=== PATIENT | female | born 1965 | race Caucasian/White ===

== ENCOUNTER → 2016-09-26 | Outpatient (CLI) | payer MEDICARE, OTHER ==
[~2016-09-26] MED LIST: ALCA3DRO EACHEYE; ASCO-96 PO; ASCO500T8 PO; ASPI1TAB30 PO; AZEL6DRO2 EACHEYE; BACL20TA PO; BETA2500 PO; BUPR1FIL3 SL; CARB200T4 PO; CELE200C PO; CHOL200024 PO; CYAN25009 PO; CYCL-259 PO; DESO15CR TD; DEXL60CA PO; DICL100G8 TD; DIPH25CA61 PO; ERGO2000 PO; ERGO500017 PO; ERGO500047 PO; GABA600T2 PO; GEMF600T3 PO; HYDR50TA13 PO; KETO10TA PO; KETO5DRO4 OP; LEVO75TA5 PO; LEVO88TA4 PO; LIDO700A5 TD; LIOT5TAB3 PO; MAGN1TAB PO; MECL25TA4 PO; METO10TA2 PO; MORP15TA3 PO; MORP30TA PO; MULT-717 PO; OLOP2.5D EACHEYE; OMEG100023 PO; OMEG1CAP24 PO; OMEG1CAP6 PO; ONDA8TAB9 PO; OXYC1TAB7 PO; OXYC5CAP4 PO; PRED1DRO EACHEYE; RANI150T4 PO; THERATEARS EACHEYE; TRAM50TA2 PO; UBID10CA5 PO; UREA85CR TD; VITA150T PO; X VIATE TD; ZINC50CA PO; [UNRECOGNIZED DRUG - CODE] PO; [UNRECOGNIZED DRUG - CODE] PO; [UNRECOGNIZED DRUG - OTHER]; [UNRECOGNIZED DRUG - OTHER] EACHEYE; [UNRECOGNIZED DRUG - OTHER] PO; [UNRECOGNIZED DRUG - OTHER] PO
[2016-09-26 12:03] LABS: BLOOD UREA NITROGEN 11 mg/dL (7-18); HEMOGLOBIN 12.2 g/dL (11.7-16.4)
== END | disposition home or self-care (01) ==
LOC: STAR 10:34
PROVIDERS: ATTEND Neurological Surgery
DX: Z01.818 Encounter for other preprocedural examination (principal); M54.12 Radiculopathy, cervical region; R79.1 Abnormal coagulation profile
CPT/HCPCS: 36415; 71020; 80048; 81003; 85025; 85610; 85730; 93005